=== PATIENT | female | born 1935 | race Caucasian/White ===

== ENCOUNTER 2018-11-14 17:25 | Emergency (ER) | payer MEDICARE, OTHER ==
--- NOTE | 2018-11-14 17:54 | ERPHSYRPT ---
- History of Present Illness Time Seen by Provider: 11/14/18 17:52 Source: patient, family Patient Subjective Stated Complaint: Pt states "a week ago monday I had my left lower lobe of my lung removed by Dr. Lai. I feel like I have a band around my chest, I cannot take any deep breaths, I can barely cough" Triage Nursing Assessment: Pt presented alert and oriented X 3, ski npwd Pt ambulates with a slow assisted gait, able to speak in clear full sentences. PT tachypneic. PT has weak cough Physician History: 83 y/o white female presents with sensation of pressure horizontal band around lower chest wall. had sensation during recent hospitalization for left lower lobectomy [address] Lai at [facility]. no real cp. no abd pain. no n/v/d Timing/Duration: day(s) (few ) Severity of Dyspnea-Max: mild Severity of Dyspnea-Current: mild Possible Cause: no prior episodes Modifying Factors: Improves With: coughing Associated Symptoms: chest pain/discomfort (pressure as above), No weakness, No dizziness, No heaviness, No leg swelling, No painful breathing, No productive cough Allergies/Adverse Reactions: Penicillins Allergy (Verified 05/04/18 16:53) Itching pseudoephedrine [From Sudafed] Adverse Reaction (Verified 05/04/18 16:54) Home Medications: Acetaminophen 500 mg [Tylenol Extra Strength 500 mg] 500 mg PO DAILY PRN PRN 05/04/18 [History] Cetirizine HCl [Zyrtec] 10 mg PO DAILY 05/04/18 [History] Diphenhydramine HCl [Benadryl] 25 mg PO DAILY PRN PRN 05/04/18 [History] Fluticasone Propionate [Flonase NASAL] 16 gm NS DAILY PRN PRN 05/04/18 [ History] Hydrocodone/APAP 5-325 Tab^^^ [[place] 5-325 Tablet^^^] 1 tab PO Q6HPRN PRN MDD 6 05/04/18 [History] Lovastatin 80 mg PO DAILY 05/04/18 [History] Metoprolol Tartrate 25 mg PO BID 05/04/18 [History] Zolpidem Tartrate [Ambien] 5 mg PO HS 05/04/18 [History] Hx Tetanus, Diphtheria Vaccination/Date Given: Yes Hx Influenza Vaccination/Date Given: Yes Hx Pneumococcal Vaccination/Date Given: Yes Immunizations Up to Date: Yes - Review of Systems Constitutional: No Symptoms Eyes: No Symptoms Ears, Nose, & Throat: No Symptoms Respiratory: Dyspnea (mild) Cardiac: Other (band like bilat chest pressure) Genitourinary Symptoms: No Symptoms Musculoskeletal: No Symptoms Skin: No Symptoms Neurological: No Symptoms Psychological: No Symptoms Endocrine: No Symptoms Hematologic/Lymphatic: No Symptoms Immunological/Allergic: No Symptoms All Other Systems: Reviewed and Negative - Past Medical History Pertinent Past Medical History: Yes Neurological History: Migraines ENT History: Cataracts Cardiac History: Arrhythmia, Coronary Artery Disease, High Cholesterol, Hypertension, Myocardial Infarction ([place]) Respiratory History: No Pertinent History Endocrine Medical History: No Pertinent History Musculoskeletal History: Fractures, Osteoarthritis GI Medical History: No Pertinent History History: No Pertinent History Psycho-Social History: No Pertinent History Female Reproductive Disorders: No Pertinent History Other Medical History: nodule on thyroid, compression fracture in spine - Past Surgical History Past Surgical History: Yes Neuro Surgical History: No Pertinent History Cardiac: Cardiac Catheterization, Internal Defibrillator, Pacemaker Respiratory: Other Gastrointestinal: Appendectomy, Cholecystectomy Genitourinary: No Pertinent History Musculoskeletal: Orthopedic Surgery Female Surgical History: Hysterectomy Other Surgical History: needle aspiration of lung, partial hip replacement. left lower lobectomy - Social History Smoking Status: Never smoker Exposure to second hand smoke: Yes Drug Use: none Patient Lives Alone: No - Female History Hx Now: No - Nursing Vital Signs Nursing Vital Signs: Initial Vital Signs Temperature 97.8 F 11/14/18 17:26 Pulse Rate 85 11/14/18 17:26 Respiratory Rate 24 11/14/18 17:26 Blood Pressure 149/83 11/14/18 17:26 O2 Sat by Pulse Oximetry 97 11/14/18 17:26 Pain Scale Pain Intensity 0 - Physical Exam General Appearance: no apparent distress, alert, anxiety Eye Exam: PERRL/EOMI, eyes nml inspection Ears, Nose, Throat Exam: hearing grossly normal, normal ENT inspection, normal pharynx Neck Exam: normal inspection, non-tender, supple, full range of motion Respiratory Exam: normal breath sounds, chest tenderness (at left incision sites ), lungs clear, airway intact, No respiratory distress Cardiovascular/Chest Exam: normal heart sounds, regular rate/rhythm Abdominal/Gastrointestinal Exam: soft, normal bowel sounds, No tenderness, No guarding, No rebound Rectal Exam: not done Extremity Exam: non-tender, normal range of motion, normal inspection Neurologic Exam: alert, oriented x 3, cooperative, rack washer II-XII nml as tested Skin Exam: normal color, warm, dry Lymphatic Exam: No adenopathy SpO2 Interpretation: normal SpO2: 97 O2 Delivery: Room Air - Course Nursing assessment & vital signs reviewed: Yes EKG Interpreted by Me: RATE (87), NORMAL AXIS, NORMAL ST-T, Other (no comparison ekg. atrial pacemaker) Ordered Tests: Active Orders 24 hr Category Date Time Status Circuit Breaker Mechanic STAT Care 11/14/18 17:58 Active EKG-ER Only STAT Care 11/14/18 17:57 Active IV Insertion STAT Care 11/14/18 17:57 Active Pulse Oximetry (ED) STAT Care 11/14/18 17:57 Active CHEST 1 VIEW (PORTABLE) Stat Exams 11/14/18 17:56 Taken CHEST WITH CONTRAST [CT] Stat Exams 11/14/18 19:17 Taken CBC W DIFF Stat Lab 11/14/18 18:07 Completed CMP Stat Lab 11/14/18 18:07 Completed D-DIMER QUANTITATION Stat Lab 11/14/18 18:07 Completed NT PRO BNP Stat Lab 11/14/18 18:07 Completed PROTIME WITH INR Stat Lab 11/14/18 18:07 Completed TROPONIN Q3H Lab 11/14/18 18:07 Completed TROPONIN Q3H Lab 11/15/18 00:00 Ordered TROPONIN Q3H Lab 11/15/18 03:00 Ordered TROPONIN Q3H Lab 11/15/18 06:00 Ordered Lab/Rad Data: Laboratory Result Diagrams 11/14/18 18:07 11/14/18 18:07 Laboratory Results 11/14/18 11/14/18 11/14/18 Range/Units 18:07 18:07 18:07 WBC (4.0-10.5) K/mm3 RBC (4.1-5.4) M/mm3 Hgb (12.0-16.0) gm/dl Hct (35-47) % MCV (78-100) fl MCH (26-32) pg MCHC (32-36) g/dl RDW (11.5-14.0) % Plt Count (150-450) K/mm3 MPV (6-9.5) fl Gran % (36.0-66.0) % Eos # (Auto) (0-0.5) Absolute Lymphs (auto) (1.0-4.6) Absolute Monos (auto) (0.0-1.3) Lymphocytes % (24.0-44.0) % Monocytes % (0.0-12.0) % Eosinophils % (0.00-5.0) % Basophils % (0.0-0.4) % Absolute Granulocytes (1.4-6.9) Basophils # (0-0.4) PT 12.2 (9.95-12.35) SECONDS INR 1.08 (0.8-3.0) D-Dimer 88123 H* (215-500) ng/mL Sodium 140 (137-145) mmol/L Potassium 4.1 (3.5-5.1) mmol/L Chloride 103 (98-107) mmol/L Carbon Dioxide 29 (22-30) mmol/L Anion Gap 12.8 (5-15) MEQ/L BUN 26 H (7-17) mg/dL Creatinine 0.53 (0.52-1.04) mg/dL Estimated GFR > 60.0 ML/MIN Glucose 109 H (74-106) mg/dL Calcium 10.3 H (8.4-10.2) mg/dL Total Bilirubin 0.30 (0.2-1.3) mg/dL AST 30 (14-36) U/L ALT 25 (0-35) U/L Alkaline Phosphatase 97 (38-126) U/L Troponin I < 0.012 (0.000-0.034) ng/mL NT-Pro-B Natriuret Pep 212 (0-1800) pg/mL Serum Total Protein 6.8 (6.3-8.2) g/dL Albumin 3.8 (3.5-5.0) g/dL 11/14/18 Range/Units 18:07 WBC 9.0 (4.0-10.5) K/mm3 RBC 4.14 (4.1-5.4) M/mm3 Hgb 13.2 (12.0-16.0) gm/dl Hct 39.2 (35-47) % MCV 94.7 (78-100) fl MCH 31.9 (26-32) pg MCHC 33.7 (32-36) g/dl RDW 13.5 (11.5-14.0) % Plt Count 320 (150-450) K/mm3 MPV 9.4 (6-9.5) fl Gran % 71.8 H (36.0-66.0) % Eos # (Auto) 0.20 (0-0.5) Absolute Lymphs (auto) 1.17 (1.0-4.6) Absolute Monos (auto) 1.14 (0.0-1.3) Lymphocytes % 13.0 L (24.0-44.0) % Monocytes % 12.7 H (0.0-12.0) % Eosinophils % 2.2 (0.00-5.0) % Basophils % 0.3 (0.0-0.4) % Absolute Granulocytes 6.46 (1.4-6.9) Basophils # 0.03 (0-0.4) PT (9.95-12.35) SECONDS INR (0.8-3.0) D-Dimer (215-500) ng/mL Sodium (137-145) mmol/L Potassium (3.5-5.1) mmol/L Chloride (98-107) mmol/L Carbon Dioxide (22-30) mmol/L Anion Gap (5-15) MEQ/L BUN (7-17) mg/dL Creatinine (0.52-1.04) mg/dL Estimated GFR ML/MIN Glucose (74-106) mg/dL Calcium (8.4-10.2) mg/dL Total Bilirubin (0.2-1.3) mg/dL AST (14-36) U/L ALT (0-35) U/L Alkaline Phosphatase (38-126) U/L Troponin I (0.000-0.034) ng/mL NT-Pro-B Natriuret Pep (0-1800) pg/mL Serum Total Protein (6.3-8.2) g/dL Albumin (3.5-5.0) g/dL - Progress Progress: improved Air Movement: good Progress Note: 11/14/18 22:09 cta chest-no occluding pulm embolus distal pulm arter extending to left lower lobe. small left pleural effusion. left 25% pneumothorax. left chest subq emphysema. [id number] with pts lung surgeon. i reviewed pt hx, condition, lab, ekg and read verbatim the cta chest report. he states ok to discharge to home. these findings are post op changes and expected. i am to reassure and have pt take her pain meds. call his office tomorrow. Blood Culture(s) Obtained: No Antibiotics given: No Counseled pt/family regarding: lab results, diagnosis, need for follow-up, rad results - Departure Departure Disposition: Home Clinical Impression: Postoperative pain Condition: Stable Critical Care Time: No Referrals: HIPOLITO AGRAWAL [Primary Care Provider] - Additional Instructions: take your medications as prescribed. follow up with Dr. Lai's office tomorrow for further management. follow same postoperative instructions
[2018-11-14 18:08] LABS: BASOPHIL % 0.3 % (0.0-0.4); Basophil (Absolute #) 0.03 (0-0.4); Eosinophil % 2.2 % (0.00-5.0); Granulocyte Absolute (ANC) 6.46 (1.4-6.9); Granulocytes % 71.8 % (36.0-66.0); Hematocrit 39.2 % (35-47); Hemoglobin 13.2 gm/dl (12.0-16.0); Lymphocyte (Absolute #) 1.17 (1.0-4.6); Mean Cell Volume 94.7 fl (78-100); Mean Corpuscular Hemoglobin 31.9 pg (26-32); Mean Corpuscular Hgb Concent. 33.7 g/dl (32-36); Mean Platelet Volume 9.4 fl (6-9.5); Monocyte (Absolute #) 1.14 (0.0-1.3); Monocytes % 12.7 % (0.0-12.0); Platelet Count 320 K/mm3 (150-450); Red Blood Count 4.14 M/mm3 (4.1-5.4); Red Cell Distribution Width 13.5 % (11.5-14.0)
[2018-11-14 18:14] LABS: INR 1.08 (0.8-3.0); PROTIME 12.2 SECONDS (9.95-12.35)
[2018-11-14 18:28] LABS: ALBUMIN 3.8 g/dL (3.5-5.0); ALKALINE PHOSPHATASE 97 U/L (38-126); ANION GAP 12.8 MEQ/L (5-15); BLOOD UREA NITROGEN 26 mg/dL (7-17); CHLORIDE 103 mmol/L (98-107); Calcium 10.3 mg/dL (8.4-10.2); Carbon Dioxide 29 mmol/L (22-30); Creatinine 1 0.53 mg/dL (0.52-1.04); Glucose 109 mg/dL (74-106); NT PRO BNP 212 pg/mL (0-1800); Potassium 4.1 mmol/L (3.5-5.1); SGOT/AST 30 U/L (14-36); SGPT/ALT 25 U/L (0-35); SODIUM 140 mmol/L (137-145); Total Protein 6.8 g/dL (6.3-8.2)
[2018-11-14 21:48] VITALS: O2SAT 97
[2018-11-14 22:44] VITALS: BP 145/92; PULSE 82
--- NOTE | 2018-11-15 09:01 | XRAY ---
Indication: Chest pain and elevated d-dimer. Status post left lower lobectomy 1 week ago. Multiple contiguous axial images obtained through the chest using 80 cc Isovue 300 contrast and PE protocol. Comparison: None There is adequate opacification of the pulmonary arteries. Distal left main pulmonary artery demonstrates pulmonary embolus extending into the remnant left lower lobe segmental artery. No right-sided pulmonary embolus. Heart is not enlarged with left-sided dual-lead pacemaker. Aorta is mildly arteriosclerotic without aneurysm/dissection. Calcium precarinal lymph node. No pathologic mediastinal/hilar lymphadenopathy. Small hiatal hernia. Examination of the lung parenchyma demonstrates left medial infrahilar suture material with postsurgical changes. Remaining left lung demonstrates approximately 25% pneumothorax and small effusion. Right lung demonstrates minimal dependent atelectasis and tiny upper lobe calcified granuloma. Bony thorax demonstrates left 4/5 anterior lateral rib fractures presumed postoperative. Left chest also demonstrates moderate posterior lateral subcutaneous emphysema. Limited upper abdomen demonstrates a few hepatic cysts, largest in the left lobe measuring 1.9 cm. Impression: 1. Nonoccluding distal left main pulmonary artery embolus as detailed. 2. Status post left lower lobectomy with associated left 4/5 rib fractures. Also approximately 25% left lung pneumothorax with small effusion and moderate subcutaneous emphysema considered abnormal given patient is one week postop. 3. Incidental hepatic cysts, small hiatal hernia, and evidence for old granulomatous disease. CT DI 30.00
--- NOTE | 2018-11-15 09:03 | XRAY ---
Indication: Short of breath and chest pain. Status post left lower lobectomy 1 week. Comparison: April 28, 2018. Portable chest demonstrates new left lung base pleural-parenchymal opacity presumed postoperative. Also small left apical pneumothorax and left chest wall subcutaneous emphysema. Right lung clear with stable apical calcified granuloma. Heart is not enlarged with stable left dual-lead pacemaker and mediastinal calcified node. Impression: New left lung base opacity presumed postoperative. Small left pneumothorax and subcutaneous emphysema considered abnormal one week postop. Again evidence for old granulomatous disease.
== END 2018-11-14 22:28 | disposition home or self-care (01) ==
LOC: ED 17:25
DX: G89.18 Other acute postprocedural pain (principal); Z90.2 Acquired absence of lung [part of]; R07.89 Other chest pain; Z79.899 Other long term (current) drug therapy
CPT/HCPCS: 36000; 36415; 71045; 71260; 80053; 83880; 84484; 85025; 85379; 85610; 93005; 93041; 94760; 99284